=== PATIENT | female | born 1975 | race Caucasian/White ===

== ENCOUNTER 2021-04-22 07:08 | Emergency (ER) | payer OTHER ==
[~2021-04-22] VITALS: Ht 162.6 cm; Wt 88.2 kg
[2021-04-22 07:39] VITALS: TEMP 98.4
[2021-04-22 08:36] LABS: BASO # 0.1 (0.0-0.2); BASO % 0.6 % (0.0-2.0); EOS # 0.1 (0.0-0.7); EOS % 1.3 % (0-4.0); GRAN # 5.8 (1.4-6.5); GRAN % 65.9 % (42.2-75.2); HEMATOCRIT 38.5 % (37.0-47.0); HEMOGLOBIN 13.5 g/dl (12.5-16.0); LYMPH # 2.1 (1.2-3.4); LYMPH % 23.5 % (20.0-51.0); MEAN CELL VOLUME 90 fl (80.0-100.0); MEAN CORPUSCULAR HEMOGLOBIN 31 pg (27.0-31.0); MEAN CORPUSCULAR HGB CONC 35 g/dl (33.0-37.0); MONO # 0.7 (0.1-0.6); PLATELET COUNT 370 K/mm3 (130-400)
[2021-04-22 08:50] LABS: BILIRUBIN,TOTAL 0.5 mg/dL (0.0-1.0); C-REACTIVE PROTEIN 1.2 mg/dL (0.0-0.9); CALCIUM 8.9 mg/dL (8.4-10.2); CREATININE, serum 0.5 (0.52-1.25); POTASSIUM 3.9 mmol/L (3.4-5.0); TOTAL PROTEIN 7.8 gm/dL (6.4-8.2)
[2021-04-22 09:38] LABS: COLLECTION METHOD CLEAN CATCH
[2021-04-22 09:47] LABS: MUCOUS Present /lpf; PH 7 (5-8); SQUAMOUS EPITHELIAL 0-2 /hpf; URINE APPEARANCE Clear; URINE BACTERIA None Seen /hpf; URINE BILIRUBIN Negative (NEGATIVE); URINE BLOOD 1+ (NEGATIVE); URINE COLOR Yellow; URINE GLUCOSE Negative (NEGATIVE); URINE KETONE Negative (NEGATIVE); URINE LEUKOCYTE ESTERASE Negative (NEGATIVE); URINE NITRATE Negative (NEGATIVE); URINE PROTEIN(semi-quant) Negative (NEGATIVE); URINE RBC 0-2 /hpf; URINE UROBILINOGEN Negative (NEGATIVE)
[2021-04-22] MEDS ORDERED: PRILOSEC 20MG20 MG PO (11:09)
[2021-04-22 11:25] VITALS: BP 130/95; PULSE 77
== END 2021-04-22 11:29 | disposition home or self-care (01) ==
LOC: COL.ER 07:08
PROVIDERS: Family Medicine
DX: K29.70 Gastritis, unspecified, without bleeding (principal)
CPT/HCPCS: C9113; J2270; J2405; J7120; Q9967